=== PATIENT | male | born 1945 | race Two or more races ===

== ENCOUNTER 2024-12-26 21:16 | Inpatient (IN) | payer OTHER ==
[~2024-12-26] VITALS: Ht 177.8 cm; Wt 82.5 kg
[2024-12-26] MEDS: DexAMETHasone SOD PHOS 10MG/1ML VIAL INJ IM ONE (22:07)
[2024-12-26] MEDS: HYDROcodone-ACET 10/325MG TAB PO ONE (22:09)
[2024-12-26] MEDS: KETOROLAC TROMETH 60MG/2ML VIAL IM ONE (22:09)
--- NOTE | 2024-12-26 22:54 | DVH ---
CT LS SPINE WO CONTRAST Date: 12/26/2024 09:59 PM History: right side radiculopathy Comparison: None TECHNIQUE: Multiple axial CT images of the lumbosacral spine were obtained using bone algorithm. Axial and coron al reformatting was done. Bone and soft tissue windows were reviewed. Radiation Dose Information: CT Dose: CTDI volume is 34.61 mGy. Dose-length product is 1470.51 mGy*cm FINDINGS: No CT evidence of definite acute fracture, spinal dislocation, or significant appearing acute subluxa tion is seen. The visualized paraspinal soft tissues are grossly unremarkable. T12-L1 There is no evidence of central spinal canal or neuroforaminal stenosis. L1-L2 There is no evidence of central spinal canal or neuroforaminal stenosis. L2-L3 There is no evidence of central spinal canal or neuroforaminal stenosis. L3-L4 There is no evidence of central spinal canal or neuroforaminal stenosis. L4-L5 There is no evidence of central spinal canal or neuroforaminal stenosis. L5-S1 There is no evidence of central spinal canal or neuroforaminal stenosis. IMPRESSION: 1. No definite CT evidence of acute fracture or dislocation of the bony lumbar spine. 2. All CT scans at this medical facility are performed using dose modulation techniques as appropriate to a performed exam including the following: Automated exposure control was utilized; adjustment of t he MA and/or KV according to patient size; and use of iterative reconstruction technique. HS:Y
--- NOTE | 2024-12-27 02:32 | ED.PDOC ---
Back pain HPI HPI Comments 79-YEAR-OLD MALE PRESENTS TO THE ED WITH SEVERE LOWER BACK FOR 2 HOURS, HISTORY OF RIGHT SIJ SPACER PLACEMENT, HAD OTHER EPISODES BUT WENT AWAY. DENIES NUMBNESS, WEAKNESS, LOSS OF BOWEL OR BLADDER CONTROL DENIES SADDLE ANESTHESIA FEVER, CHILLS, NAUSEA, VOMITING ABDOMINAL PAIN, SHORTNESS OF BREATH OR CHEST PAIN. Chief Complaint: Back Pain Time Seen by MD: 21:21 Reviewed Notes: Nurses Notes, Medications, Allergies Allergies: Coded Allergies: Prochlorperazine (Verified Allergy, Unknown, 12/26/24) Information Source: Patient Mode of Arrival: Ambulatory Past Medical History PAST MEDICAL HISTORY: Denies Surgical History: Denies all surgeries Family History Family History: Reviewed,noncontributory to illness Social History Smoker: Non-Smoker Alcohol: Denies ETOH Use Drugs: Denies Drug Use Constitutional: denies: chills, diaphoresis, fatigue, fever, malaise, sweats, weakness, others EENTM: denies: blurred vision, double vision, ear bleeding, ear discharge, ear drainage, ear pain, ear ringing, eye pain, eye redness, hearing loss, mouth pain, mouth swelling, nasal discharge, nose bleeding, nose congestion, nose pain, photophobia, tearing, throat pain, throat swelling, voice changes, others Respiratory: denies: cough, hemoptysis, orthopnea, SOB at rest, shortness of breath, SOB with excertion, stridor, wheezing, others Cardiovascular: denies: chest pain, dizzy spells, diaphoresis, Dyspnea on exertion, edema, irregular heart beat, left arm pain, lightheadedness, palpitations, PND, syncope, others Gastrointestinal: denies: abdomen distended, abdominal pain, blood streaked bowels, constipated, diarrhea, dysphagia, difficulty swallowing, hematemesis, melena, nausea, poor appetite, poor fluid intake, rectal bleeding, rectal pain, vomiting, others Genitourinary: denies: burning, dysuria, flank pain, frequency, hematuria, incontinence, penile discharge, penile sore, pain, testicle pain, testicle swelling, urgency, others Neurological: denies: dizziness, fainting, headache, left sided numbness, left sided weakness, numbness, paresthesia, pre-existing deficit, right sided numbness, right sided weakness, seizure, speech problems, tingling, tremors, weakness, others Musculoskeletal: reports: back pain; denies: gout, joint pain, joint swelling, muscle pain, muscle stiffness, neck pain, others Integumetry: denies: bruises, change in color, change in hair/nails, dryness, laceration, lesions, lumps, rash, wounds, others Allergic/Immunocompromised: denies: Difficulty Healing, Frequent Infections, Hives, Itching, others Hematologic/Lymphatic: denies: anemia, blood clots, easy bleeding, easy bruising, swollen glands, others Endocrine: denies: excessive hunger, excessive sweating, excessive thirst, excessive urination, flushing, intolerance to cold, intolerance to heat, unexplained weight gain, unexplained weight loss, others Psychiatric: denies: anxiety, bipolar disorder, depression, hopeless, panic disorder, schizophrenia, sleepless, suicidal, others Physical Exam General Appearance: No Apparent Distress, Normal HEENT: Pharynx Normal Neck: Full Range of Motion, Non-Tender Respiratory: Lungs Clear, No Respiratory Distress, Normal Breath Sounds Cardiovascular: No Edema, No JVD, No Murmur, No Gallop, Normal Peripheral Pulses, Regular Rate/Rhythm Breast Exam: Deferred Gastrointestinal: No Organomegaly, Non Tender, No Pulsatile Mass, Normal Bowel Sounds, Soft Genitalia: Deferred Pelvic: Deferred Rectal: Deferred Extremities: Normal capillary refill, Normal inspection, Normal range of motion, Non-tender, No pedal edema Musculoskeletal : Location: Right Extremity Location: Back (MODERATE TENDERNESS PALPATED OVER RIGHT SIDED LOWER BACK RIGHT S IJ AREA AND RIGHT L3-L5 PARASPINAL MUSCLES NOTED SPASMS. STRENGTH SENSORY AND MOTION INTACT PATIENT ABLE TO DO STRAIGHT LEG RAISE DUE TO MODERATE DISCOMFORT) Apperance: Normal Neurologic: Alert, No Motor Deficits, Normal Affect, Normal Mood, No Sensory Deficits Cerebellar Function: Normal Reflexes: Normal Skin: Dry, Normal Color, Warm Lymphatic: No Adenopathy Was a procedure done? Was a procedure done?: No Back Pain Differential Dx Differential Diagnosis: Fracture, Musculoskeletal Pain X-Ray, Labs, Meds, VS Vital Signs Date Time Temp Pulse Resp B/P (MAP) Pulse Ox O2 Delivery O2 Flow Rate FiO2 12/27/24 02:57 73 18 146/74 12/27/24 02:55 97.6 69 20 146/74 (98) 97 97.6 12/26/24 21:42 98.8 77 18 152/83 (106) 97 98.8 Lab Test 12/27/24 03:35 Range/Units White Blood Count 8.1 4.4-10.8 10^3/uL Red Blood Count 5.39 4.5-5.90 10^6/uL Hemoglobin 16.7 13.5-17.5 g/dL Hematocrit 48.5 41.0-53.0 % Mean Corpuscular Volume 89.9 80.0-100.0 fL Mean Corpuscular Hemoglobin 30.9 28.0-32.0 pg Mean Corpuscular Hemoglobin Concent 34.4 32.0-36.0 g/dL Red Cell Distribution Width 14.0 11.8-14.3 % Platelet Count 191 140-450 10^3/uL Mean Platelet Volume 8.1 6.9-10.8 fL Neutrophils (%) (Auto) 86.8 H 37.0-80.0 % Lymphocytes (%) (Auto) 11.5 10.0-50.0 % Monocytes (%) (Auto) 1.1 0.0-12.0 % Eosinophils (%) (Auto) 0.1 0.0-7.0 % Basophils (%) (Auto) 0.5 0.0-2.0 % Neutrophils # (Auto) 7.0 1.6-8.6 10 ^3/uL Lymphocytes # (Auto) 0.9 0.4-5.4 10 ^3/uL Monocytes # (Auto) 0.1 0-1.3 10 ^3/uL Eosinophils # (Auto) 0 0-0.8 10 ^3/uL Basophils # (Auto) 0 0-0.2 10 ^3/uL Nucleated Red Blood Cells 0.0 % Sodium Level 138 136-145 mmol/L Potassium Level 4.8 3.5-5.1 mmol/L Chloride Level 103 98-107 mmol/L Carbon Dioxide Level 25 20-31 mmol/L Anion Gap 10 5-15 Blood Urea Nitrogen 19 9-23 mg/dL Creatinine 1.27 0.700-1.30 mg/dL Glomerular Filtration Rate Calc 58 >90 mL/min BUN/Creatinine Ratio 15.0 10.0-20.0 Serum Glucose 171 H 74-106 mg/dL Calcium Level 9.9 8.7-10.4 mg/dL Total Bilirubin 0.6 0.2-1.0 mg/dL Aspartate Amino Transferase (AST) 18 <34 U/L Alanine Aminotransferase (ALT) 21 7-40 U/L Alkaline Phosphatase 88 46-116 U/L Total Protein 7.3 5.7-8.2 g/dL Albumin 4.7 3.2-4.8 g/dL Current Medications Medications (Trade) Dose Ordered Sig/Mono Route Start Time Stop Time Status Last Admin Dexamethasone Sodium Phosphate (Decadron Injection) 10 mg ONCE ONCE IM 12/26/24 21:45 12/26/24 21:46 DC 12/26/24 22:07 Acetaminophen/ Hydrocodone Bitart ([place] 10/325MG Tab) 1 tab ONCE ONCE PO 12/26/24 21:45 12/26/24 21:46 DC 12/26/24 22:09 Ketorolac Tromethamine (Toradol Injection) 30 mg ONCE ONCE IM 12/26/24 21:45 12/26/24 21:46 DC 12/26/24 22:09 Morphine Sulfate 4 mg ONCE ONCE IV 12/27/24 02:45 12/27/24 02:46 DC 12/27/24 02:57 X-Ray, Labs, Meds, VS Comment IMAGING: T LS SPINE WO CONTRAST Date: 12/26/2024 09:59 PM History: right side radiculopathy Comparison: None TECHNIQUE: Multiple axial CT images of the lumbosacral spine were obtained using bone algorithm. Axial and coronal reformatting was done. Bone and soft tissue windows were reviewed. Radiation Dose Information: CT Dose: CTDI volume is 34.61 mGy. Dose-length product is 1470.51 mGy*cm FINDINGS: No CT evidence of definite acute fracture, spinal dislocation, or significant appearing acute subluxation is seen. The visualized paraspinal soft tissues are grossly unremarkable. T12-L1 There is no evidence of central spinal canal or neuroforaminal stenosis. L1-L2 There is no evidence of central spinal canal or neuroforaminal stenosis. L2-L3 There is no evidence of central spinal canal or neuroforaminal stenosis. L3-L4 There is no evidence of central spinal canal or neuroforaminal stenosis. L4-L5 There is no evidence of central spinal canal or neuroforaminal stenosis. L5-S1 There is no evidence of central spinal canal or neuroforaminal stenosis. IMPRESSION: 1. No definite CT evidence of acute fracture or dislocation of the bony lumbar spine. NOT MENTIONED BY RADIOLOGIST READ MILD TO MODERATE MODERATE DISC SPACE NARROWING AT L3 AND ALSO NOTED RIGHT SACROILIAC JOINT SPACER INTACT LABS: CBC, CMP WITHIN NORMAL LIMITS PENDING UA MEDICATIONS: [place] 10 mg p.o. Toradol 30 mg IM Decadron 10 mg IM Morphine 4 mg IV push Normal saline 1000 mL 100 mL/an hour PLAN: Admit for intractable lower back/right SIJ' pain, consider MRI in the morning Time of 1ST Reevaluation: 21:21 Reevaluation 1ST: Unchanged Time of 2ND Reevaluation: 02:29 Reevaluation 2ND: Unchanged Patient Education/Counseling: Diagnosis, Treatment, Prognosis, Need For Follow Up Family Education/Counseling: No Family Present SEPSIS Sepsis Screen Date sepsis recognized/suspect: Dec 26, 2024 Time Sepsis recognized/suspect: 2134 Recent Procedure: No On Antibiotic Therapy: No Respiratory Rate >20: No Heart Rate >90: No Temp<36 C (96.8 F) or >38.3 C: No SBP <90 or MAP <65 mmHG: No New Acute Mental Status Change: No Is the patient on CPAP, BIPAP,: No Physician Orders Ls Spine Wo Contrast (12/26/24 21:43) Urinalysis (12/27/24 03:18) Sodium Chloride 0.9% (12/27/24 03:30) Vital Signs Date Time Temp Pulse Resp B/P (MAP) Pulse Ox O2 Delivery O2 Flow Rate FiO2 12/27/24 02:57 73 18 146/74 12/27/24 02:55 97.6 69 20 146/74 (98) 97 97.6 12/26/24 21:42 98.8 77 18 152/83 (106) 97 98.8 Laboratory Tests Test 12/27/24 03:35 White Blood Count 8.1 10^3/uL (4.4-10.8) Medications Medications Dose Ordered Sig/Mono Route Start Time Stop Time Status Last Admin Dose Admin Acetaminophen/ Hydrocodone Bitart 1 tab ONCE ONCE PO 12/26/24 21:45 12/26/24 21:46 DC 12/26/24 22:09 Dexamethasone Sodium Phosphate 10 mg ONCE ONCE IM 12/26/24 21:45 12/26/24 21:46 DC 12/26/24 22:07 Ketorolac Tromethamine 30 mg ONCE ONCE IM 12/26/24 21:45 12/26/24 21:46 DC 12/26/24 22:09 Morphine Sulfate 4 mg ONCE ONCE IV 12/27/24 02:45 12/27/24 02:46 DC 12/27/24 02:57 Departure 1 Departure Time of Disposition: 02:28 Impression: Primary Impression: Intractable back pain Disposition: ADMITTED INPATIENT Condition: Stable Critical Care Note Critical Care Time?: No Stability Stability form required: YNES VillaP Dec 27, 2024 02:32
[2024-12-27] MEDS: MORPHINE SULFATE 4 MG/ML SYR/VIAL IV ONE (02:57)
[2024-12-27 03:52] LABS: Basophils # (auto) 0 10 ^3/uL (0-0.2); Basophils % (auto) 0.5 % (0.0-2.0); Eosinophils # (auto) 0 10 ^3/uL (0-0.8); Eosinophils % (auto) 0.1 % (0.0-7.0); Hematocrit 48.5 % (41.0-53.0); Hemoglobin 16.7 g/dL (13.5-17.5); Lymphocytes # (auto) 0.9 10 ^3/uL (0.4-5.4); Lymphocytes % (auto) 11.5 % (10.0-50.0); Mean Corpuscular Hemoglobin 30.9 pg (28.0-32.0); Mean Corpuscular Hgb Conc. 34.4 g/dL (32.0-36.0); Mean Corpuscular Volume 89.9 fL (80.0-100.0); Monocytes # (auto) 0.1 10 ^3/uL (0-1.3); Monocytes % (auto) 1.1 % (0.0-12.0); Neutrophils % (auto) 86.8 % (37.0-80.0); Platelet Count (auto) 191 10^3/uL (140-450); Red Blood Cells 5.39 10^6/uL (4.5-5.90); White Blood Cell 8.1 10^3/uL (4.4-10.8)
[2024-12-27 04:08] LABS: Alanine Aminotransferase 21 U/L (7-40); Albumin 4.7 g/dL (3.2-4.8); Alkaline Phosphatase 88 U/L (46-116); Anion Gap 10 (5-15); Aspartate Aminotransferase 18 U/L (<34); Bilirubin, Total 0.6 mg/dL (0.2-1.0); Blood Urea Nitrogen 19 mg/dL (9-23); Calcium 9.9 mg/dL (8.7-10.4); Carbon Dioxide 25 mmol/L (20-31); Chloride 103 mmol/L (98-107); Potassium 4.8 mmol/L (3.5-5.1); Sodium 138 mmol/L (136-145); Total Protein 7.3 g/dL (5.7-8.2)
[2024-12-27 04:19] LABS: Glucose 171 mg/dL (74-106)
[2024-12-27] MEDS ORDERED: HYDROcodone-ACET 5/325MG TAB PO PRN (07:15)
[2024-12-27] MEDS ORDERED: ACETAMINOPHEN 325 MG TAB PO PRN (07:15)
--- NOTE | 2024-12-27 07:19 | DVHHP2 ---
History of Present Illness History of Present Illness 79-year-old male with past medical history of hyperlipidemia hypertension, history spinal surgery right SI joint S/P spacer placement presenting with the acute onset lower back pain x1 day. Pain started 12/26 approximately 7:00 p.m. afternoon/evening when patient stood up from prolonged seeing time on his computer had sudden onset lower back pain associated with intractable nausea. Patient has no history of IV drug use. Patient has no associated lower extremity weakness, bladder bilateral loss, saddle anesthesia,. Patient has no abdominal pain, no vomiting,. Patient has no genitourinary symptoms. In ED patient was given [place], Toradol IM x1, Decadron IM x1, morphine IV 4 mg x 1, started on normal saline 1 L total. Labs largely unremarkable. CT lumbar without any acute concerns. Review of Systems Allergies: Coded Allergies: Prochlorperazine (Verified Allergy, Unknown, 12/26/24) Exam Vital Signs Vital Signs Date Time Temp Pulse Resp B/P (MAP) Pulse Ox O2 Delivery O2 Flow Rate FiO2 12/27/24 02:57 73 18 146/74 12/27/24 02:55 97.6 97 97.6 Exam GEN: Healthy appearing, well-developed, NAD. HEENT: NC/AT; MMM. CV: RRR, no m/r/g. LUNGS: CTAB, no w/r/c. ABD: Soft, NT/ND, NBS, no masses or organomegaly. EXT: skin Warm, well perfused. no rashes. No clubbing, cyanosis, or edema. NEURO: Ambulating with no limitations. No focal deficits. Tender to palpation right parasternal L1-L2 region. Labs/Xrays Labs Test 12/27/24 03:35 Range/Units White Blood Count 8.1 4.4-10.8 10^3/uL Red Blood Count 5.39 4.5-5.90 10^6/uL Hemoglobin 16.7 13.5-17.5 g/dL Hematocrit 48.5 41.0-53.0 % Mean Corpuscular Volume 89.9 80.0-100.0 fL Mean Corpuscular Hemoglobin 30.9 28.0-32.0 pg Mean Corpuscular Hemoglobin Concent 34.4 32.0-36.0 g/dL Red Cell Distribution Width 14.0 11.8-14.3 % Platelet Count 191 140-450 10^3/uL Mean Platelet Volume 8.1 6.9-10.8 fL Neutrophils (%) (Auto) 86.8 H 37.0-80.0 % Lymphocytes (%) (Auto) 11.5 10.0-50.0 % Monocytes (%) (Auto) 1.1 0.0-12.0 % Eosinophils (%) (Auto) 0.1 0.0-7.0 % Basophils (%) (Auto) 0.5 0.0-2.0 % Neutrophils # (Auto) 7.0 1.6-8.6 10 ^3/uL Lymphocytes # (Auto) 0.9 0.4-5.4 10 ^3/uL Monocytes # (Auto) 0.1 0-1.3 10 ^3/uL Eosinophils # (Auto) 0 0-0.8 10 ^3/uL Basophils # (Auto) 0 0-0.2 10 ^3/uL Nucleated Red Blood Cells 0.0 % Sodium Level 138 136-145 mmol/L Potassium Level 4.8 3.5-5.1 mmol/L Chloride Level 103 98-107 mmol/L Carbon Dioxide Level 25 20-31 mmol/L Anion Gap 10 5-15 Blood Urea Nitrogen 19 9-23 mg/dL Creatinine 1.27 0.700-1.30 mg/dL Glomerular Filtration Rate Calc 58 >90 mL/min BUN/Creatinine Ratio 15.0 10.0-20.0 Serum Glucose 171 H 74-106 mg/dL Calcium Level 9.9 8.7-10.4 mg/dL Total Bilirubin 0.6 0.2-1.0 mg/dL Aspartate Amino Transferase (AST) 18 <34 U/L Alanine Aminotransferase (ALT) 21 7-40 U/L Alkaline Phosphatase 88 46-116 U/L Total Protein 7.3 5.7-8.2 g/dL Albumin 4.7 3.2-4.8 g/dL Assessment/Plan Assessment/Plan Acute back pain, with intractable pain Intractable nausea Hyperlipidemia Hypertension - pain control Tylenol, [place], morphine PRN --antiemetics p.r.n. - trial muscle relaxants, solumedrol iv daily - bed rest - continue home meds - PT Regular diet No GI prophylaxis tolerating p.o. Remain ambulatory, no DVT prophylaxis Med surge Full code Plan discussed with: Patient Date of Service: Dec 27, 2024 Billing Provider: YOVANI AGUIRRE MD Common Visit Codes: [id number] INP/OBS CARE (HIGH) Secondary Visit Codes: [id number] CARE PLAN 30 MINUTES YOVANI AGUIRRE MD Dec 27, 2024 07:19
[2024-12-27 09:15] VITALS: PULSE 96; RESP 16; O2SAT 96
[2024-12-27] MEDS: BACLOFEN 10 MG TAB PO ONE (09:39)
[2024-12-27 10:27] VITALS: BP 151/87; PULSE 92; RESP 16; TEMP 98.2; O2SAT 98
[2024-12-27 10:50] VITALS: BP 151/87; PULSE 92; RESP 16; TEMP 98.2; O2SAT 98
[2024-12-27] MEDS: SODIUM CHLORIDE 0.9% 1,000 ML IV ONE (11:14)
[2024-12-27] MEDS: methylPREDNISolone SOD SUCC 125 MG/2 ML VL IV SCH (11:16)
[2024-12-27] MEDS: LISINOPRIL 20 MG TAB PO SCH (11:25)
[2024-12-27 12:00] VITALS: BP 158/89; PULSE 95; RESP 20; TEMP 97.5; O2SAT 97
[2024-12-27] MEDS: BACLOFEN 10 MG TAB PO SCH (18:35)
[2024-12-27 21:00] VITALS: BP 134/74; PULSE 94; RESP 19; TEMP 98.4; O2SAT 97
[2024-12-27] MEDS: ATORVASTATIN 20 MG TAB PO SCH (22:55)
[2024-12-28] VITALS (8 sets, daily range): BP systolic 116–138; BP diastolic 63–90; PULSE 58–73; RESP 16–20; TEMP 97–98.6; O2SAT 96–98
[2024-12-28 06:42] LABS: Basophils # (auto) 0 10 ^3/uL (0-0.2); Basophils % (auto) 0.1 % (0.0-2.0); Eosinophils # (auto) 0 10 ^3/uL (0-0.8); Hematocrit 45.2 % (41.0-53.0); Hemoglobin 15.6 g/dL (13.5-17.5); Lymphocytes # (auto) 1.4 10 ^3/uL (0.4-5.4); Lymphocytes % (auto) 9.5 % (10.0-50.0); Mean Corpuscular Hemoglobin 31.1 pg (28.0-32.0); Mean Corpuscular Hgb Conc. 34.6 g/dL (32.0-36.0); Mean Corpuscular Volume 89.9 fL (80.0-100.0); Monocytes # (auto) 1.1 10 ^3/uL (0-1.3); Monocytes % (auto) 7.4 % (0.0-12.0); Neutrophils # (auto) 12.6 10 ^3/uL (1.6-8.6); Nucleated Red Blood Cells % 0.1 %; Platelet Count (auto) 199 10^3/uL (140-450); Red Blood Cells 5.03 10^6/uL (4.5-5.90); Red Cell Distribution Width 14.1 % (11.8-14.3); White Blood Cell 15.1 10^3/uL (4.4-10.8)
[2024-12-28 06:59] LABS: Alanine Aminotransferase 15 U/L (7-40); Albumin 4.3 g/dL (3.2-4.8); Alkaline Phosphatase 76 U/L (46-116); Anion Gap 8 (5-15); Aspartate Aminotransferase 17 U/L (<34); Bilirubin, Total 0.6 mg/dL (0.2-1.0); Blood Urea Nitrogen 23 mg/dL (9-23); Calcium 10.2 mg/dL (8.7-10.4); Carbon Dioxide 27 mmol/L (20-31); Chloride 107 mmol/L (98-107); Sodium 142 mmol/L (136-145); Total Protein 6.6 g/dL (5.7-8.2)
[2024-12-28 07:07] LABS: Glucose 130 mg/dL (74-106)
[2024-12-28 07:09] LABS: Potassium 5.7 mmol/L (3.5-5.1)
--- NOTE | 2024-12-28 12:19 | DVHPN2 ---
Reviewed: Care Plan, H&P, Medications, Previous Orders Changes from previous H/P or p: No Changes General: Per HPI Objective Vitals Vital Signs Date Time Temp Pulse Resp B/P (MAP) Pulse Ox O2 Delivery O2 Flow Rate FiO2 12/28/24 09:31 116/63 12/28/24 08:55 98.1 67 16 98 98.1 12/28/24 08:10 Room Air* 0 21 Intake/Output Intake and Output 12/28/24 07:00 Intake Total 875 ml Balance 875 ml Intake Oral 800 ml IV Total 75 ml Medications Current Medications Medications Dose Ordered Sig/Mono Route Start Time Stop Time Status Last Admin Dose Admin Acetaminophen/ Hydrocodone Bitart 1 tab Q4HP PRN PO 12/27/24 07:15 Acetaminophen 650 mg Q6HP PRN PO 12/27/24 07:15 Morphine Sulfate 2 mg Q4HPRN PRN IV 12/27/24 07:15 Baclofen 10 mg BID PO 12/27/24 18:00 12/28/24 09:30 10 MG Methylprednisolone Sodium Succinate 60 mg DAILY IV 12/27/24 10:00 12/28/24 09:30 60 MG Lisinopril 40 mg DAILY PO 12/27/24 10:00 12/28/24 09:31 40 MG Atorvastatin Calcium 10 mg HS PO 12/27/24 22:00 12/27/24 22:55 10 MG Laboratory Results Laboratory Tests 12/28/24 05:27 Chemistry Test 12/28/24 05:27 Albumin 4.3 g/dL (3.2-4.8) Calcium Level 10.2 mg/dL (8.7-10.4) Total Protein 6.6 g/dL (5.7-8.2) LFT Test 12/28/24 05:27 Alanine Aminotransferase (ALT) 15 U/L (7-40) Alkaline Phosphatase 76 U/L (46-116) Aspartate Amino Transferase (AST) 17 U/L (<34) Total Bilirubin 0.6 mg/dL (0.2-1.0) Assessment/Plan Assessment/Plan Acute back pain, with intractable pain Intractable nausea Hyperlipidemia Hypertension - pain control Tylenol, [place], morphine PRN --antiemetics p.r.n. - trial muscle relaxants, solumedrol iv daily - bed rest - continue home meds - PT Regular diet No GI prophylaxis tolerating p.o. Remain ambulatory, no DVT prophylaxis Med surge Full code Date of Service: Dec 28, 2024 Billing Provider: ANTONI ESPINAL DO Common Visit Codes: [id number] INP/OBS CARE(HIGH) ANTONI ESPINAL DO Dec 28, 2024 12:19
--- NOTE | 2024-12-28 12:36 | DVHINCON2 ---
Allergies: Coded Allergies: Prochlorperazine (Verified Allergy, Unknown, 12/26/24) Current Medications Current Medications Medications (Trade) Dose Ordered Sig/Mono Route PRN Reason Start Time Stop Time Status Last Admin Baclofen (Liorisal Tablet) 10 mg BID PO 12/27/24 18:00 12/28/24 09:30 Atorvastatin Calcium (Lipitor) 10 mg HS PO 12/27/24 22:00 12/27/24 22:55 Family History: Kidney disease G8 FATHER Unknown family medical history G8 MOTHER H&P Exam Vital Signs/I&O Vital Sign Date Time Temp Pulse Resp B/P (MAP) Pulse Ox O2 Delivery O2 Flow Rate FiO2 12/28/24 09:31 116/63 12/28/24 08:55 98.1 67 16 98 98.1 12/28/24 08:10 Room Air* 0 21 Intake and Output 12/27/24 12/28/24 19:00 07:00 Intake Total 75 ml 800 ml Balance 75 ml 800 ml Intake Oral 0 ml 800 ml IV Total 75 ml Labs/Diagnostic Data Labs/Diagnostic Data Laboratory Tests Test 12/28/24 05:27 12/27/24 03:35 Range/Units White Blood Count 15.1 #H 8.1 4.4-10.8 10^3/uL Red Blood Count 5.03 5.39 4.5-5.90 10^6/uL Hemoglobin 15.6 16.7 13.5-17.5 g/dL Hematocrit 45.2 48.5 41.0-53.0 % Mean Corpuscular Volume 89.9 89.9 80.0-100.0 fL Mean Corpuscular Hemoglobin 31.1 30.9 28.0-32.0 pg Mean Corpuscular Hemoglobin Concent 34.6 34.4 32.0-36.0 g/dL Red Cell Distribution Width 14.1 14.0 11.8-14.3 % Platelet Count 199 191 140-450 10^3/uL Mean Platelet Volume 8.7 8.1 6.9-10.8 fL Neutrophils (%) (Auto) 83.0 H 86.8 H 37.0-80.0 % Lymphocytes (%) (Auto) 9.5 L 11.5 10.0-50.0 % Monocytes (%) (Auto) 7.4 1.1 0.0-12.0 % Eosinophils (%) (Auto) 0.0 0.1 0.0-7.0 % Basophils (%) (Auto) 0.1 0.5 0.0-2.0 % Neutrophils # (Auto) 12.6 H 7.0 1.6-8.6 10 ^3/uL Lymphocytes # (Auto) 1.4 0.9 0.4-5.4 10 ^3/uL Monocytes # (Auto) 1.1 0.1 0-1.3 10 ^3/uL Eosinophils # (Auto) 0 0 0-0.8 10 ^3/uL Basophils # (Auto) 0 0 0-0.2 10 ^3/uL Nucleated Red Blood Cells 0.1 0.0 % Sodium Level 142 138 136-145 mmol/L Potassium Level 5.7 *H 4.8 3.5-5.1 mmol/L Chloride Level 107 103 98-107 mmol/L Carbon Dioxide Level 27 25 20-31 mmol/L Anion Gap 8 10 5-15 Blood Urea Nitrogen 23 19 9-23 mg/dL Creatinine 1.15 1.27 0.700-1.30 mg/dL Glomerular Filtration Rate Calc 66 58 >90 mL/min BUN/Creatinine Ratio 20.0 15.0 10.0-20.0 Serum Glucose 130 H 171 H 74-106 mg/dL Calcium Level 10.2 9.9 8.7-10.4 mg/dL Total Bilirubin 0.6 0.6 0.2-1.0 mg/dL Aspartate Amino Transferase (AST) 17 18 <34 U/L Alanine Aminotransferase (ALT) 15 21 7-40 U/L Alkaline Phosphatase 76 88 46-116 U/L Total Protein 6.6 7.3 5.7-8.2 g/dL Albumin 4.3 4.7 3.2-4.8 g/dL ANTONI ESPINAL DO Dec 28, 2024 12:36
--- NOTE | 2024-12-28 20:06 | DVH ---
PROCEDURE: MRI LUMBAR SPINE WO CONTRAST Indication: back pain COMPARISON: None TECHNIQUE: Multiplanar multisequence images of the the lumbar spine are obtained. FINDINGS: For the purpose of this examination, there are 5 lumbar vertebral body types counting from the lumbos acral junction. Lumbar vertebral body heights are maintained. Alignment maintained. Moderate multilevel disc space n arrowing and desiccation. No abnormal marrow edema. Degenerative fatty endplate changes at L4-5. The conus terminates at the level of the L1 vertebral body level. L1-2: Small disc protrusion. Mild facet and flavum hypertrophy. No spinal canal stenosis. Mild-to-mod erate left and mild right neural foraminal stenosis. L2-3: Left paracentral /foramen disc protrusion extending 2 mm posteriorly. No spinal canal stenosis. Mild facet and flavum hypertrophy. [id number] left and mild right neural foraminal stenosis. L3-4: 2 mm broad-based disc protrusion. Mild facet and flavum hypertrophy. No spinal canal stenosis. Moderate to severe left and moderate right neural foraminal stenosis. L4-5: 3 mm disc protrusion. Moderatem facet and flavum hypertrophy. No spinal canal stenosis. Moderat e to severe bilateral neural foraminal stenosis. Right facet joint effusion measuring 8 mm. L5-S1: Small disc protrusion. [id number] facet and flavum hypertrophy. No spinal canal stenosis . Moderate left and mild right neural foraminal stenosis. IMPRESSION: Moderate lumbar degenerative disc disease. Multilevel neural foraminal stenosis most pronounced at L3-4 and L4-5 as described above. No high-grade spinal canal stenosis.
[2024-12-29 01:00] VITALS: BP 135/76; PULSE 58; RESP 19; TEMP 97.7; O2SAT 98
[2024-12-29 05:00] VITALS: BP 136/78; PULSE 72; RESP 18; TEMP 97.5; O2SAT 97
[2024-12-29] MEDS: MORPHINE SULFATE INJ 2 MG/ml SYRG IV PRN (07:38)
[2024-12-29 08:00] VITALS: PULSE 68; RESP 18; O2SAT 98
[2024-12-29] MEDS: ONDANSETRON HCL 4 MG/2 ML VIAL IV PRN (08:25)
[2024-12-29 09:00] VITALS: BP 150/79; PULSE 61; RESP 20; TEMP 97.4; O2SAT 98
[2024-12-29 13:00] VITALS: BP 125/75; PULSE 58; RESP 16; TEMP 98.2; O2SAT 97
[2024-12-29] MEDS ORDERED: LISI20TA56 PO ×2 (13:24)
[2024-12-29] MEDS ORDERED: ATOR20TA50 PO ×2 (13:24)
[2024-12-29] MEDS ORDERED: NAP500T PO ×2 (13:24)
[2024-12-29] MEDS ORDERED: BACL10TA PO ×2 (13:24)
--- NOTE | 2024-12-29 13:25 | DVHPN2 ---
Reviewed: Care Plan, H&P, Medications, Previous Orders Changes from previous H/P or p: No Changes General: Per HPI Objective Vitals Vital Signs Date Time Temp Pulse Resp B/P (MAP) Pulse Ox O2 Delivery O2 Flow Rate FiO2 12/29/24 10:47 132/65 12/29/24 09:00 97.4 61 20 98 97.4 12/29/24 08:00 Room Air* 0 21 Intake/Output Intake and Output 12/29/24 07:00 Intake Total 1400 ml Balance 1400 ml Intake Oral 1400 ml # Voids 7 # Bowel Movements 1 Medications Current Medications Medications Dose Ordered Sig/Mono Route Start Time Stop Time Status Last Admin Dose Admin Acetaminophen/ Hydrocodone Bitart 1 tab Q4HP PRN PO 12/27/24 07:15 Acetaminophen 650 mg Q6HP PRN PO 12/27/24 07:15 Morphine Sulfate 2 mg Q4HPRN PRN IV 12/27/24 07:15 12/29/24 07:38 2 MG Baclofen 10 mg BID PO 12/27/24 18:00 12/29/24 10:47 10 MG Methylprednisolone Sodium Succinate 60 mg DAILY IV 12/27/24 10:00 12/29/24 10:47 60 MG Lisinopril 40 mg DAILY PO 12/27/24 10:00 12/29/24 10:47 40 MG Atorvastatin Calcium 10 mg HS PO 12/27/24 22:00 12/28/24 21:15 10 MG Ondansetron HCl 4 mg Q6HPRN PRN IV 12/29/24 07:15 12/29/24 08:25 4 MG Laboratory Results Laboratory Tests 12/28/24 05:27 Assessment/Plan Assessment/Plan Acute back pain, with intractable pain Intractable nausea Hyperlipidemia Hypertension - pain control Tylenol, [place], morphine PRN --antiemetics p.r.n. - trial muscle relaxants, solumedrol iv daily - bed rest - continue home meds - PT Regular diet No GI prophylaxis tolerating p.o. Remain ambulatory, no DVT prophylaxis Med surge Full code My Orders Orders - ANTONI ESPINAL DO Procedure Category Date Status Time Discharge DISCHARGE 12/29/24 Transmitted 13:24 ANTONI ESPINAL DO Dec 29, 2024 13:25
--- NOTE | 2024-12-29 13:26 | DVHDS2 ---
Discharge Summary Date of Admission Dec 27, 2024 at 07:10 Date of Discharge: Dec 29, 2024 Labs/Diagnostic Data: Laboratory Results Test 12/28/24 05:27 White Blood Count 15.1 10^3/uL (4.4-10.8) Red Blood Count 5.03 10^6/uL (4.5-5.90) Hemoglobin 15.6 g/dL (13.5-17.5) Hematocrit 45.2 % (41.0-53.0) Mean Corpuscular Volume 89.9 fL (80.0-100.0) Mean Corpuscular Hemoglobin 31.1 pg (28.0-32.0) Mean Corpuscular Hemoglobin Concent 34.6 g/dL (32.0-36.0) Red Cell Distribution Width 14.1 % (11.8-14.3) Platelet Count 199 10^3/uL (140-450) Mean Platelet Volume 8.7 fL (6.9-10.8) Neutrophils (%) (Auto) 83.0 % (37.0-80.0) Lymphocytes (%) (Auto) 9.5 % (10.0-50.0) Monocytes (%) (Auto) 7.4 % (0.0-12.0) Eosinophils (%) (Auto) 0.0 % (0.0-7.0) Basophils (%) (Auto) 0.1 % (0.0-2.0) Neutrophils # (Auto) 12.6 10 ^3/uL (1.6-8.6) Lymphocytes # (Auto) 1.4 10 ^3/uL (0.4-5.4) Monocytes # (Auto) 1.1 10 ^3/uL (0-1.3) Eosinophils # (Auto) 0 10 ^3/uL (0-0.8) Basophils # (Auto) 0 10 ^3/uL (0-0.2) Nucleated Red Blood Cells 0.1 % Sodium Level 142 mmol/L (136-145) Potassium Level 5.7 mmol/L (3.5-5.1) Chloride Level 107 mmol/L (98-107) Carbon Dioxide Level 27 mmol/L (20-31) Anion Gap 8 (5-15) Blood Urea Nitrogen 23 mg/dL (9-23) Creatinine 1.15 mg/dL (0.700-1.30) Glomerular Filtration Rate Calc 66 mL/min (>90) BUN/Creatinine Ratio 20.0 (10.0-20.0) Serum Glucose 130 mg/dL (74-106) Calcium Level 10.2 mg/dL (8.7-10.4) Total Bilirubin 0.6 mg/dL (0.2-1.0) Aspartate Amino Transferase (AST) 17 U/L (<34) Alanine Aminotransferase (ALT) 15 U/L (7-40) Alkaline Phosphatase 76 U/L (46-116) Total Protein 6.6 g/dL (5.7-8.2) Albumin 4.3 g/dL (3.2-4.8) Other Laboratory Tests 12/28/24 05:27 Discharge Disposition: Home Discharge Instruct/Medications Diet: Cardiac 2g Na,low cholest Activity: No Restrictions, As Tolerated Discharge Statement: "Patient was advised to return to the ER or call 911 if any headaches, dizziness, shortness of breath, chest pain, abdominal pain, bleeding, fevers, or worsening of medical condition. Patient was counseled about treatment plan, medications, possible side effects, patientverbalized understanding. All questions were answered to the best of my ability. This discharge took greater then 30 minutes in planning, reviewing documentation, counseling the patient, and discussing with other team members." ASSESSMENT ASSESSMENT Assessment ANTONI ESPINAL DO Dec 29, 2024 13:26
== END 2024-12-29 15:35 | disposition home or self-care (01) | DRG 552 ==
LOC: ER 21:16 → OVERFLOW 12-27 07:10 → CENTRAL 12-27 17:55
PROVIDERS: ADMIT Internal Medicine; ATTEND Internal Medicine
DX: M99.53 Intervertebral disc stenosis of neural canal of lumbar region (principal); E78.5 Hyperlipidemia, unspecified; I10 Essential (primary) hypertension
CPT/HCPCS: 36415; 72131; 72148; 80053; 85025; 96372; 96374; 97110; 97163; G0378; J1100; J1885; J2405

== ENCOUNTER → 2025-01-04 | Outpatient (CLI) | payer OTHER ==
[~2025-01-04] MED LIST: ATOR20TA50 PO; BACL10TA PO; LISI20TA56 PO; NAP500T PO
[2025-01-04 14:50] LABS: Basophils # (auto) 0 10 ^3/uL (0-0.2); Basophils % (auto) 0.7 % (0.0-2.0); Eosinophils # (auto) 0.3 10 ^3/uL (0-0.8); Eosinophils % (auto) 3.7 % (0.0-7.0); Hematocrit 49.3 % (41.0-53.0); Hemoglobin 17.2 g/dL (13.5-17.5); Lymphocytes % (auto) 29.2 % (10.0-50.0); Mean Corpuscular Hemoglobin 31.4 pg (28.0-32.0); Mean Corpuscular Volume 89.7 fL (80.0-100.0); Monocytes # (auto) 0.8 10 ^3/uL (0-1.3); Monocytes % (auto) 10.8 % (0.0-12.0); Neutrophils # (auto) 3.9 10 ^3/uL (1.6-8.6); Neutrophils % (auto) 55.6 % (37.0-80.0); Nucleated Red Blood Cells % 0.2 %; Platelet Count (auto) 207 10^3/uL (140-450); Red Cell Distribution Width 14.1 % (11.8-14.3)
[2025-01-04 15:40] LABS: Urine Blood Negative /uL (Negative); Urine Clarity Clear (Clear); Urine Color Light-Yellow (Yellow); Urine Protein, UAD Negative (Negative); Urine Specific Gravity 1.019 (1.001-1.035); Urine Urobilinogen Normal (Negative)
[2025-01-04 15:45] LABS: Alanine Aminotransferase 21 U/L (7-40); Albumin 4.7 g/dL (3.2-4.8); Alkaline Phosphatase 89 U/L (46-116); Anion Gap 9 (5-15); Aspartate Aminotransferase 17 U/L (13-40); BUN/Creatinine Ratio 16.8 (10.0-20.0); Blood Urea Nitrogen 19 mg/dL (9-23); Calcium 10.2 mg/dL (8.7-10.4); Carbon Dioxide 28 mmol/L (20-31); Chloride 104 mmol/L (98-107); Cholesterol 138 mg/dL (< 200); Glucose 98 mg/dL (74-106); HDL Cholesterol 48 mg/dL (40-59); LDL Cholesterol 77 mg/dL (< 100); Potassium 4.8 mmol/L (3.5-5.1); Sodium 141 mmol/L (136-145); Total Protein 7.1 g/dL (5.7-8.2); Triglycerides 93 mg/dL (< 150)
[2025-01-04 15:46] LABS: Bilirubin, Total 0.8 mg/dL (0.2-1.0)
== END | disposition home or self-care (01) ==
LOC: LAB 14:24
PROVIDERS: ATTEND Internal Medicine
DX: N18.2 Chronic kidney disease, stage 2 (mild) (principal); E78.5 Hyperlipidemia, unspecified
CPT/HCPCS: 36415; 80053; 80061; 81003; 84443; 85025

== ENCOUNTER 2025-05-11 13:34 | Outpatient (CLI) | payer OTHER | END 2025-05-11 17:00 | disposition home or self-care (01) | LOC: LAB 13:34 | PROVIDERS: ATTEND Internal Medicine | DX: Z12.5 Encounter for screening for malignant neoplasm of prostate (principal); Z12.11 Encounter for screening for malignant neoplasm of colon | CPT/HCPCS: 84153 ==